=== PATIENT | male | born 1985 | race Two or more races ===

== ENCOUNTER 2016-11-08 17:27 | Emergency (ER) | payer SELFPAY ==
[2016-11-08 17:46] VITALS: BP 118/74
[2016-11-08] MEDS ORDERED: Ketorolac 30 MG/ML SDV IM ONE (18:04)
--- NOTE | 2016-11-08 18:10 | EDM.PDOC ---
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 States this afternoon he was changing body positions in bed and dislocated his right shoulder. He was able to place the shoulder back into place on his own accord with no difficulties. He has not been evaluated by orthopedic surgeon here in the [place]. He has been evaluated by orthopedic surgeon during his adolescents with MRI obtained in [place]. He has not undergone any sort of surgery on his shoulders. He presents to the ED with pain to the right shoulder. Has not taken any [id number] medications. He has full range of motion of his arm with increasing pain noted to the shoulder joint. Denies any sensory changes distally. He offers no additional complaints. Occurred When: this afternoon Occurred Where: home Method of Injury: other (Change in body position in bed.) Pain/Injury Location: Reports: upper extremity, right Allergies/ADRs: Allergies No Known Allergies Allergy (Verified 05/12/16 08:43) Home Medications: Ambulatory Orders . [No Known Home Meds] 11/08/16 [Confirmed 11/08/16] Past Medical History - Past Health History Medical/Surgical History: Denies Medical/Surgical History Gastrointestinal History: Reports: GERD - Past Surgical History Musculoskeletal Surgical History: Reports: Other (see below) Other Musculoskeletal Surgeries/Procedures:: freq shoulder dislocation to the right Social & Family History - Family History Family Medical History: Noncontributory - Tobacco Use Smoking Status *Q: Current Every Day Smoker Years of Tobacco use: 3 Packs/Tins Daily: 1 Second Hand Smoke Exposure: Yes - Caffeine Use Caffeine Use: Reports: Soda - Alcohol Use Days Per Week of Alcohol Use: 0 - Recreational Drug Use Recreational Drug Use: Yes Drug Use in Last 12 Months: Yes Recreational Drug Type: Reports: Marijuana/Hashish - Living Situation & Occupation Living situation: Reports: with family Review of Systems - Review of Systems Review Of Systems: See Below Musculoskeletal: Reports: shoulder pain (Right), joint pain (Right shoulder), muscle pain (Right shoulder). Denies: neck pain, arm pain, joint swelling Skin: Reports: no symptoms Neurological: Denies: numbness, paresthesia, tingling Trauma Exam - Physical Exam Exam: See Below Exam Limited By: No limitations General Appearance: Reports: alert, WD/WN, no apparent distress Head: Reports: atraumatic, normocephalic Eyes: bilateral eye: PERRL Ears: Reports: hearing grossly normal Nose: Reports: normal inspection Throat/Mouth: Reports: Normal voice, No airway compromise Neck: Reports: non-tender, full range of motion, normal alignment, normal inspection Respiratory Exam: Reports: no respiratory distress, lungs clear, normal breath sounds, no accessory muscle use, chest non-tender Cardiovascular: Reports: normal peripheral pulses, regular rate, rhythm Back: Reports: full range of motion, normal inspection, non-tender. Denies: muscle spasm, paraspinal tenderness Extremities: Reports: no evidence of injury, normal range of motion, pain with movement (Right shoulder), tenderness (Noted to the lateral posterior and anterior right shoulder. No findings concerning for shoulder dislocation.) Neurologic: Reports: director nursing service II-XII nml as tested, no motor/sensory deficits, alert , normal mood/affect, oriented x 3 Skin: Reports: Normal color, Warm/dry Course - Vital Signs Last Recorded V/S: Last Vital Signs Temp 98.7 F 11/08/16 17:44 Pulse 73 11/08/16 17:44 Resp 20 11/08/16 17:44 BP 118/74 11/08/16 17:44 Pulse Ox 100 11/08/16 17:44 - Orders/Labs/Meds Orders: Active Orders 24 hr Category Date Time Status DME for Discharge [COMM] Stat Oth 11/08/16 18:04 Ordered Meds: Medications Discontinued Medications Generic Name Dose Route Start Last Admin Trade Name Freq PRN Reason Stop Dose Admin Ketorolac Tromethamine 30 mg 11/08/16 18:04 11/08/16 18:17 Toradol IM 11/08/16 18:05 30 mg ONETIME ONE Administration - Re-Assessments/Exams Free Text/Narrative Re-Assessment/Exam: Physical examination did not elicit any findings concerning for shoulder currently being dislocated. Patient has full range of motion with pain isolated to the right shoulder. Do not see the need at this point to obtain a x -ray of the right shoulder since this was not traumatic in nature. He has a history of recurrent shoulder dislocations. I have ordered Toradol 30 mg IM and also shoulder sling to be placed. Will discharge patient home with instructions as documented. 11/08/16 18:09 Departure - Departure Time of Disposition: 18:10 Disposition: Home, Self-Care 01 Condition: good Clinical Impression: Shoulder joint painful on movement Qualifiers: Laterality: right Qualified Code(s): M25.511 - Pain in right shoulder Recurrent shoulder dislocation Qualifiers: Laterality: right Qualified Code(s): M24.411 - Recurrent dislocation, right shoulder Instructions: Shoulder Dislocation, Laxt-hp-Goia, Shoulder Pain, [id number] Referrals: PCP,None [Primary Care Provider] - Timur Graff MD [Physician] - Janes Marti MD [Physician] - Forms: ED Department Discharge Additional Instructions: Wear arm sling for the next few days taking off while icing. Apply ice to the affected area 6 times daily, 20 minutes in duration, do not place ice directly on the skin. Take ibuprofen and tylenol in alternating fashion for pain. Refrain from lifting arm above your head and externally rotating your arm from the body. These two movements will increase likely ying of dislocating it again. Followup with orthopedic surgeon of your choice for further evaluation and treatment. Return to the E.D. for any new or worsening symptoms. - My Orders Last 24 Hours: My Active Orders 11/08/16 18:04 DME for Discharge [COMM] Stat - Assessment/Plan Last 24 Hours: My Active Orders 11/08/16 18:04 DME for Discharge [COMM] Stat
== END 2016-11-08 18:18 | disposition home or self-care (01) ==
LOC: JD.ED 17:27
DX: M24.411 Recurrent dislocation, right shoulder (principal); F17.210 Nicotine dependence, cigarettes, uncomplicated; K21.9 Gastro-esophageal reflux disease without esophagitis; Z98.890 Other specified postprocedural states
CPT/HCPCS: 96372; 99283; J1885

== ENCOUNTER 2017-05-20 11:39 | Emergency (ER) | payer SELFPAY ==
[2017-05-20 11:50] VITALS: BP 109/72
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
--- NOTE | 2017-05-21 07:57 | CR ---
Chest and right ribs: Frontal view of the chest was obtained as well as two-views of the right ribs. Comparison: Previous chest x-ray of 09/01/15. Heart size and mediastinum are within normal limits. Lungs are clear. No fracture or other rib abnormality is identified. Impression: 1. Nothing acute is identified on frontal chest x-ray. No discrete right sided rib abnormality is appreciated. Diagnostic code #1
== END 2017-05-20 13:05 | disposition home or self-care (01) ==
LOC: JD.ED 11:39
DX: S20.211A Contusion of right front wall of thorax, initial encounter (principal); K21.9 Gastro-esophageal reflux disease without esophagitis; F17.210 Nicotine dependence, cigarettes, uncomplicated; W51.XXXA Accidental striking against or bumped into by another person, initial encounter; Y93.72 Activity, wrestling
CPT/HCPCS: 71101-26-RT; 71101-RT; 99283

== ENCOUNTER 2017-05-27 12:59 | Emergency (ER) | payer SELFPAY ==
[2017-05-27 13:12] VITALS: BP 135/87
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
--- NOTE | 2017-05-27 19:56 | CR ---
Chest and right ribs: Frontal view of the chest was obtained as well as 3 views of the right ribs. Comparison: Previous chest and right rib study of 05/20/17. No discrete right sided rib abnormality is seen. Heart size and mediastinum are normal. Lungs are clear. Impression: 1. No definite right-sided rib abnormality is appreciated. Nothing acute is seen on accompanying chest x-ray. Diagnostic code #1
== END 2017-05-27 15:08 | disposition home or self-care (01) ==
LOC: JD.ED 12:59
DX: S20.211A Contusion of right front wall of thorax, initial encounter (principal); F17.210 Nicotine dependence, cigarettes, uncomplicated; X58.XXXA Exposure to other specified factors, initial encounter; Y93.72 Activity, wrestling
CPT/HCPCS: 71101-26-RT; 71101-RT; 99283

== ENCOUNTER 2017-08-20 17:20 | Emergency (ER) | payer SELFPAY ==
[2017-08-20 17:28] VITALS: BP 117/83
[2017-08-20] MEDS ORDERED: HYDROmorphone 1 MG/ML Syringe IVPUSH ONE ×2 (17:58→18:39)
--- NOTE | 2017-08-20 17:58 | EDM.PDOC ---
ED HPI GENERAL MEDICAL PROBLEM - General Chief Complaint: Upper Extremity Injury/Pain Stated Complaint: RIGHT SHOULDER INJURY Time Seen by Provider: 08/20/17 17:22 Source of Information: Reports: Patient History Limitations: Reports: No Limitations - History of Present Illness INITIAL COMMENTS - FREE TEXT/NARRATIVE: The patient states that he slipped on ice and fell onto his right shoulder around 16:30. He presents with an apparent dislocated right shoulder. He is otherwise uninjured. He states that he has suffered numerous (perhaps 20) bilateral shoulder dislocations for most of his life. No prior surgeries, citing cost and lack of insurance. He states that he has been told that there is bony damage to his shoulder (Hill-Sachs deformity?) The patient does not have a PCP. Right Arm Pain Score (Numeric/FACES): 10 - Related Data Allergies Allergy/AdvReac Type Severity Reaction Status Date / Time No Known Allergies Allergy Verified 08/20/17 17:23 Home Meds: Home Meds . [No Known Home Meds] 08/20/17 [History] Past Medical History Gastrointestinal History: Reports: GERD (untreated) Musculoskeletal History: Reports: Other (See Below) (recurrent bilateral shoulder dislocations) Social & Family History - Family History Family Medical History: Noncontributory - Tobacco Use Smoking Status *Q: Current Every Day Smoker Years of Tobacco use: 15 Packs/Tins Daily: 1 - Caffeine Use Caffeine Use: Reports: Soda - Alcohol Use Alcohol Use History: Yes Alcohol Use Frequency: Socially - Recreational Drug Use Recreational Drug Use: Yes Drug Use in Last 12 Months: Yes Recreational Drug Type: Reports: Cocaine (las around 2004), Marijuana/Hashish ( daily) - Living Situation & Occupation Living situation: Reports: Single, with Significant Other (Girlfriend), with Family (1 child) 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) Review of Systems - Review of Systems Review Of Systems: See Below Constitutional: Reports: No Symptoms Eyes: Reports: No Symptoms Ears: Reports: No Symptoms Nose: Reports: No Symptoms Mouth/Throat: Reports: No Symptoms Respiratory: Reports: No Symptoms Cardiovascular: Reports: No Symptoms GI/Abdominal: Reports: No Symptoms Genitourinary: Reports: No Symptoms Musculoskeletal: Reports: No Symptoms Skin: Reports: No Symptoms Neurological: Reports: No Symptoms Psychiatric: Reports: No Symptoms ED EXAM, GENERAL - Physical Exam Exam: See Below Exam Limited By: No Limitations General Appearance: Alert, WD/WN, Mild Distress Extremities: Other (Exam consistent with anterior dislocation of the right shoulder. Neurovascular status of the right upper cavity is intact.) ED TRAUMA EXTREMITY PROCEDURES - Joint Reduction Site: Shoulder (R) Sedation: Conscious Sedation (Dilaudid 2 mg total + Versed 2 mg total) Pre-Procedure NV Status: Normal Post-Procedure NV Status: Normal Technique: Traction/Counter Traction Number of Attempts: 1 Post-Reduction Imaging: Completely Reduced, No Fracture Seen Joint Reduction Complications: No Course - Vital Signs Last Recorded V/S: Last Vital Signs Temp 36.3 C 08/20/17 17:24 Pulse 80 08/20/17 17:24 Resp 18 08/20/17 17:24 BP 117/83 08/20/17 17:24 Pulse Ox 100 08/20/17 17:24 - Orders/Labs/Meds Orders: Active Orders 24 hr Category Date Time Status Shoulder Comp Rt [CR] Stat Exams 08/20/17 17:42 Taken Shoulder Comp Rt [CR] Stat Exams 08/20/17 18:43 Ordered DME for Discharge [COMM] Stat Oth 08/20/17 18:49 Ordered Meds: Medications Discontinued Medications Generic Name Dose Route Start Last Admin Trade Name Freq PRN Reason Stop Dose Admin Hydromorphone HCl 1 mg 08/20/17 17:58 08/20/17 18:12 Dilaudid IVPUSH 08/20/17 17:59 1 mg ONETIME ONE Administration Hydromorphone HCl Confirm 08/20/17 18:28 08/20/17 18:41 Dilaudid Administered 08/20/17 18:29 Not Given Dose 1 mg .ROUTE .STK-MED ONE Hydromorphone HCl 1 mg 08/20/17 18:39 08/20/17 18:39 Dilaudid IVPUSH 08/20/17 18:40 1 mg ONETIME ONE Administration Midazolam HCl 1 mg 08/20/17 18:18 08/20/17 18:35 Versed 1 Mg/Ml IVPUSH 08/20/17 18:19 1 mg ONETIME ONE Administration Midazolam HCl 1 mg 08/20/17 18:42 08/20/17 18:43 Versed 1 Mg/Ml IVPUSH 08/20/17 18:43 1 mg ONETIME ONE Administration - Re-Assessments/Exams Free Text/Narrative Re-Assessment/Exam: 08/20/17 18:17 2-view radiographs of the right shoulder appear to demonstrate an anterior dislocation. No fracture identified. Formal read per the Radiologist pending. 08/20/17 18:52 2-view post-procedure radiographs of the right shoulder appear to demonstrate successful reduction of the right shoulder with no fracture identified. Formal read per the radiologist pending. The patient will be fitted with an arm sling and discharged home. I will refer him to Dr. Graff for follow-up. Departure - Departure Time of Disposition: 18:54 Disposition: Home, Self-Care 01 Condition: Good Clinical Impression: Recurrent dislocation, right shoulder - Discharge Information Referrals: Timur Graff MD [Physician] - Forms: ED Department Discharge Additional Instructions: You were seen in the emergency room after slipping, falling, and dislocating her right shoulder. Your shoulder was put back in place in the ER. You have been fitted with an arm sling. Wear this during the day so that your forearm crosses her abdomen. Take [id number] Tylenol or ibuprofen as needed for discomfort. Follow-up with the orthopedic surgeon Dr. Graff for treatment options for your recurrent dislocated shoulder. If any other problems, please do not hesitate to return to the ER. - My Orders Last 24 Hours: My Active Orders 08/20/17 17:42 Shoulder Comp Rt [CR] Stat 08/20/17 18:43 Shoulder Comp Rt [CR] Stat 08/20/17 18:49 DME for Discharge [COMM] Stat - Assessment/Plan Last 24 Hours: My Active Orders 08/20/17 17:42 Shoulder Comp Rt [CR] Stat 08/20/17 18:43 Shoulder Comp Rt [CR] Stat 08/20/17 18:49 DME for Discharge [COMM] Stat
[2017-08-20] MEDS ORDERED: Midazolam 1 MG/ML 2 ML SDV IVPUSH ONE ×2 (18:18→18:42)
[2017-08-20] MEDS ORDERED: HYDROmorphone 1 MG/ML Syringe ONE (18:28)
--- NOTE | 2017-08-22 08:26 | CR ---
Right shoulder: Two views of the right shoulder were obtained. Comparison: No prior shoulder study. Anterior subcoracoid dislocation is seen. No fracture or other bony abnormality is identified. Impression: 1. Dislocated right shoulder. Diagnostic code #3 MTDD
--- NOTE | 2017-08-22 08:27 | CR ---
Right shoulder: Three views of the right shoulder were obtained. Comparison: Prior shoulder study performed on the same day (5:50 PM). Previous dislocation has been reduced. Glenohumeral alignment appears normal. Acromioclavicular joint appears normal. No fracture or other abnormality is appreciated. Impression: 1. Previous dislocation reduced. Right shoulder study appears unremarkable. Diagnostic code # 1 MTDD
== END 2017-08-20 19:10 | disposition home or self-care (01) ==
LOC: JD.ED 17:20
DX: M24.411 Recurrent dislocation, right shoulder (principal); F17.210 Nicotine dependence, cigarettes, uncomplicated; W00.9XXA Unspecified fall due to ice and snow, initial encounter
CPT/HCPCS: 23650; 73030; 96374; 96375; 99284; J1170; J2250; 23655

== ENCOUNTER 2018-05-01 14:48 | Emergency (ER) | payer SELFPAY ==
[2018-05-01 15:11] VITALS: BP 119/78
--- NOTE | 2018-05-01 16:48 | EDM.PDOC ---
ED HPI GENERAL MEDICAL PROBLEM - General Chief Complaint: General Stated Complaint: RIB PAIN Time Seen by Provider: 05/01/18 16:42 Source of Information: Reports: Patient History Limitations: Reports: No Limitations - History of Present Illness INITIAL COMMENTS - FREE TEXT/NARRATIVE: 32-year-old male presents for evaluation and treatment of left-sided rib and left sided back pain. Reports has been present for about a week. States he was working, lifting heavy objects. Reports he developed pain the next day. Has tried ibuprofen but he continues to have pain. Has never had anything like this before. No trauma such as motor vehicle accidents. Denies any cough. Reports pain with taking a deep breath. Left Chest Pain Score (Numeric/FACES): 9 - Related Data Allergies Allergy/AdvReac Type Severity Reaction Status Date / Time No Known Allergies Allergy Verified 05/01/18 15:10 Home Meds: Home Meds Orphenadrine [Norflex] 100 mg PO BID #20 tab.er 05/01/18 [Rx] Past Medical History - Past Health History Medical/Surgical History: Denies Medical/Surgical History Gastrointestinal History: Reports: GERD Musculoskeletal History: Reports: Other (See Below) (recurrent bilateral shoulder dislocations) - Past Surgical History Musculoskeletal Surgical History: Reports: Other (See Below) Other Musculoskeletal Surgeries/Procedures:: muscle pain to the right chest Social & Family History - Family History Family Medical History: Noncontributory - Tobacco Use Smoking Status *Q: Current Every Day Smoker Years of Tobacco use: 6 Packs/Tins Daily: 0.7 - Caffeine Use Caffeine Use: Reports: Coffee - Recreational Drug Use Recreational Drug Use: No - Living Situation & Occupation Living situation: Reports: Single, with Significant Other (Girlfriend), with Family (1 child) 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) ED ROS GENERAL - Review of Systems Review Of Systems: See Below Cardiovascular: Reports: Chest Pain (left posterior lateral chest) Musculoskeletal: Reports: Back Pain (left mid to upper back) ED EXAM, GENERAL - Physical Exam Exam: See Below Exam Limited By: No Limitations General Appearance: Alert, WD/WN, No Apparent Distress Throat/Mouth: Normal Inspection, Normal Lips, Normal Voice, No Airway Compromise Respiratory/Chest: No Respiratory Distress, Lungs Clear, Normal Breath Sounds, Chest Non-Tender Cardiovascular: Normal Peripheral Pulses, Regular Rate, Rhythm, No Murmur Neurological: Alert, Oriented, Normal Cognition Psychiatric: Normal Affect, Normal Mood Course - Vital Signs Last Recorded V/S: Last Vital Signs Temp 98.8 F 05/01/18 15:08 Pulse 81 05/01/18 15:08 Resp 16 05/01/18 15:08 BP 119/78 05/01/18 15:08 Pulse Ox 98 05/01/18 15:08 - Radiology Interpretation Free Text/Narrative:: xray shows no acute intrathoracic process. No rib fracture appreciated. - Re-Assessments/Exams Free Text/Narrative Re-Assessment/Exam: 05/01/18 17:12 Reviewed the x-rays with the patient. Will discharge home. Likely muscular in origin. Will try some muscle relaxers. Follow-up if not much better. Discharge instructions as documented. Departure - Departure Time of Disposition: 17:18 Disposition: Home, Self-Care 01 Condition: Good Clinical Impression: Muscle strain - Discharge Information *PRESCRIPTION DRUG MONITORING PROGRAM REVIEWED*: No *COPY OF PRESCRIPTION DRUG MONITORING REPORT IN PATIENT AAYUSH: No Prescriptions: Orphenadrine [Norflex] 100 mg PO BID #20 tab.er Instructions: Muscle Strain, [id number] Referrals: PCP,Lashell [Primary Care Provider] - Mallorie Bruno, [employer]PER [Nurse Practitioner] - Forms: ED Department Discharge Additional Instructions: Continue taking OTC NSAIDs such as aleve or ibuprofen. May take tylenol as needed for additional relief. Norflex 1 tab PO bid prn muscle spasms. Norflex may make you drowsy, do not drive or operate machinery until you know how this will affect you. Recommend heat to the sore area for additional pain relief. Expect to be sore for the next week, if your symptoms persist, follow-up with family med in the clinic. Recommend Ashish Albert or Mallorie Bruno. Call [phone] to schedule with one of these providers. Please return to the ER should your symptoms change or worsen.
--- NOTE | 2018-05-07 14:07 | CR ---
Chest and left ribs: Frontal view of the chest was obtained as well as three views of the left ribs. Comparison: Prior chest x-ray of 05/27/17. Heart size and mediastinum are normal. Lungs are clear. No fracture or other bony abnormality is seen within the left ribs. Impression: 1. No abnormality is identified on frontal chest x-ray. No discrete abnormality on left rib exam. Diagnostic code #1
== END 2018-05-01 17:25 | disposition home or self-care (01) ==
LOC: JD.ED 14:48
DX: S29.011A Strain of muscle and tendon of front wall of thorax, initial encounter (principal); F17.210 Nicotine dependence, cigarettes, uncomplicated; X50.0XXA Overexertion from strenuous movement or load, initial encounter; Y99.0 Civilian activity done for income or pay
CPT/HCPCS: 71101-26-LT; 71101-LT; 99283

== ENCOUNTER 2018-09-10 19:09 | Emergency (ER) | payer SELFPAY ==
[2018-09-10 19:29] VITALS: BP 106/81
--- NOTE | 2018-09-10 19:51 | EDM.PDOC ---
ED HPI GENERAL MEDICAL PROBLEM - General Chief Complaint: Cardiovascular Problem Stated Complaint: RAPID HEART BEAT Time Seen by Provider: 09/10/18 19:51 - History of Present Illness INITIAL COMMENTS - FREE TEXT/NARRATIVE: 33-year-old male presents emergency room with mid upper abdominal discomfort. The patient took a energy supplement stimulant drink this morning and is had a lot of heartburn since he is also a little anxious. The patient has been smoking a lot of marijuana try and make this better. He denies fevers or chills no other abdominal pain no nausea vomiting constipation or diarrhea. Patient has not had problems like this in the past - Related Data Allergies Allergy/AdvReac Type Severity Reaction Status Date / Time No Known Allergies Allergy Verified 09/10/18 19:30 Home Meds: Home Meds Pantoprazole Sodium [Protonix] 40 mg PO Q24H #30 tablet. 09/10/18 [Rx] Sucralfate [Carafate] 1 gm PO Q6H #20 tablet 09/10/18 [Rx] Past Medical History - Past Health History Medical/Surgical History: Denies Medical/Surgical History Gastrointestinal History: Reports: GERD Musculoskeletal History: Reports: Other (See Below) - Past Surgical History Musculoskeletal Surgical History: Reports: Other (See Below) Other Musculoskeletal Surgeries/Procedures:: muscle pain to the right chest Social & Family History - Family History Family Medical History: Noncontributory - Tobacco Use Smoking Status *Q: Current Every Day Smoker Years of Tobacco use: 3 Packs/Tins Daily: 0.5 - Caffeine Use Caffeine Use: Reports: Coffee, Soda, Tea - Recreational Drug Use Recreational Drug Type: Reports: Marijuana/Hashish - Living Situation & Occupation Living situation: Reports: Single, with Significant Other (Girlfriend), with Family (1 child) 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 Denies: No Symptoms, Chest Pain Endocrine: Reports: No Symptoms GI/Abdominal: Reports: Abdominal Pain. Denies: Constipation, Diarrhea, Nausea, Vomiting : Reports: No Symptoms Musculoskeletal: Reports: No Symptoms Skin: Reports: No Symptoms Neurological: Reports: No Symptoms Psychiatric: Reports: No Symptoms ED EXAM, GENERAL - Physical Exam Exam: See Below General Appearance: Alert, Mild Distress, Other (He is somewhat anxious and mildly tachycardic) Head: Atraumatic, Normocephalic Neck: Normal Inspection, Supple, Non-Tender, Full Range of Motion Respiratory/Chest: No Respiratory Distress, Lungs Clear, Normal Breath Sounds Cardiovascular: No Edema, No Murmur, Tachycardia (Greater than 1:15 120) GI/Abdominal: Normal Bowel Sounds, Soft, Other (Midepigastric discomfort no other discomfort identified with palpation no rigidity rebound or guarding noted ) Extremities: Normal Inspection, No Pedal Edema Neurological: Alert, Oriented, Normal Cognition Psychiatric: Anxious EKG INTERPRETATION EKG Date: 09/10/18 Rhythm: NSR Rate (Beats/Min): 117 Harrell: Normal P-Wave: Present QRS: Normal ST-T: Normal QT: Normal Comparison: NA - No Prior EKG Course - Vital Signs Last Recorded V/S: Last Vital Signs Temp 38.0 C 09/10/18 19:26 Pulse 121 H 09/10/18 19:26 Resp 18 09/10/18 19:26 BP 106/81 09/10/18 19:26 Pulse Ox 100 09/10/18 19:26 - Orders/Labs/Meds Orders: Active Orders 24 hr Category Date Time Status EKG Documentation Completion [RC] ASDIRECTED Care 09/10/18 19:35 Active Pantoprazole [ProTONIX] Med 09/11/18 22:07 Once 40 mg PO ONETIME ONE EKG 12 Lead [EK] Stat Ther 09/10/18 19:34 Ordered Medication Orders Pantoprazole Sodium (Protonix) 40 mg PO ONETIME ONE Stop: 09/11/18 22:08 Meds: Medications Generic Name Dose Route Start Last Admin Trade Name Freq PRN Reason Stop Dose Admin Pantoprazole Sodium 40 mg 09/11/18 22:07 Protonix PO 09/11/18 22:08 ONETIME ONE Discontinued Medications Generic Name Dose Route Start Last Admin Trade Name Freq PRN Reason Stop Dose Admin Al Hydroxide/Mg Hydroxide 30 0 ml 09/10/18 21:01 09/10/18 21:17 ml/ Lidocaine HCl 15 ml PO 09/10/18 21:02 45 ml ONETIME ONE Administration Lorazepam 1 mg 09/10/18 21:01 09/10/18 21:18 Ativan IM 09/10/18 21:02 1 mg ONETIME ONE Administration Sucralfate 1 gm 09/10/18 22:19 Carafate PO 09/10/18 22:20 ONETIME ONE - Re-Assessments/Exams Free Text/Narrative Re-Assessment/Exam: 09/10/18 22:14 The patient is doing much better after some Ativan and a GI cocktail he would like to go home Departure - Departure Time of Disposition: 22:15 Disposition: Home, Self-Care 01 Clinical Impression: Anxiety reaction, Dyspepsia Prescriptions: Pantoprazole Sodium [Protonix] 40 mg PO Q24H #30 tablet. Sucralfate [Carafate] 1 gm PO Q6H #20 tablet Referrals: PCP,None [Primary Care Provider] - Forms: ED Department Discharge Additional Instructions: Return to the emergency room with any questions problems worsening symptoms. Follow-up in the Hospital clinic next week. [phone]. Use the medications as directed. Avoid energy stimulant drinks. Avoid marijuana - My Orders Last 24 Hours: My Active Orders 09/10/18 19:34 EKG 12 Lead [EK] Stat 09/10/18 19:35 EKG Documentation Completion [RC] ASDIRECTED 09/11/18 22:07 Pantoprazole [ProTONIX] 40 mg PO ONETIME ONE - Assessment/Plan Last 24 Hours: My Active Orders 09/10/18 19:34 EKG 12 Lead [EK] Stat 09/10/18 19:35 EKG Documentation Completion [RC] ASDIRECTED 09/11/18 22:07 Pantoprazole [ProTONIX] 40 mg PO ONETIME ONE
[2018-09-10] MEDS ORDERED: LORazepam 2 MG/ML SDV IM ONE (21:01)
[2018-09-10] MEDS ORDERED: Alum Hydrox/Mag Hydrox/Simeth 30 ML, Lidocaine 2% 15 ML PO ONE ×2 (21:01)
[2018-09-10] MEDS ORDERED: Sucralfate Suspension 1 GM/10 ML Cup PO ONE (22:19)
[2018-09-10] MEDS ORDERED: Pantoprazole 40 MG Tab.CR PO ONE (22:31)
[2018-09-11] MEDS ORDERED: Pantoprazole 40 MG Tab.CR PO ONE (22:07)
== END 2018-09-10 22:54 | disposition home or self-care (01) ==
LOC: JD.ED 19:09
DX: R10.13 Epigastric pain (principal); F41.9 Anxiety disorder, unspecified; F17.210 Nicotine dependence, cigarettes, uncomplicated
CPT/HCPCS: 93005; 96372; 99285; A9270; J2060; 93010; 99283

== ENCOUNTER 2019-01-28 09:07 | Emergency (ER) | payer OTHER ==
[2019-01-28] MEDS ORDERED: Sodium Chloride 0.9% 10 ML Syringe FLUSH PRN (09:16)
[2019-01-28] MEDS ORDERED: HYDROmorphone 0.5 MG/0.5 ML Syringe IVPUSH ONE (09:17)
[2019-01-28] MEDS ORDERED: Metoclopramide 10 MG/2 ML SDV IVPUSH ONE (09:22)
[2019-01-28 09:30] VITALS: BP 129/59
--- NOTE | 2019-01-28 09:46 | EDM.PDOC ---
<Francesca Chaudhary - Last Filed: 01/28/19 10:06> ED HPI GENERAL MEDICAL PROBLEM - General Chief Complaint: Upper Extremity Injury/Pain Stated Complaint: R SHOULDER INJURY Time Seen by Provider: 01/28/19 09:15 Source of Information: Reports: Patient History Limitations: Reports: No Limitations - History of Present Illness INITIAL COMMENTS - FREE TEXT/NARRATIVE: 33 y/o male presented to ER with cc right shoulder pain. He reports he lifted something heavy and his right shoulder went out. He reports he has dislocated it twice in the past. He denies any neck or back pain. Onset: Today, Sudden Onset Date: 01/28/19 Onset Time: 08:30 Duration: Getting Worse Location: Reports: Upper Extremity, Right Quality: Reports: Throbbing Severity: Moderate Improves with: Reports: None Worsens with: Reports: Movement Context: Reports: Trauma - Related Data Allergies Allergy/AdvReac Type Severity Reaction Status Date / Time No Known Allergies Allergy Verified 01/28/19 09:17 Home Meds: Home Meds . [No Known Home Meds] 01/28/19 [History] Past Medical History - Past Health History Medical/Surgical History: Denies Medical/Surgical History Gastrointestinal History: Reports: GERD Musculoskeletal History: Reports: Other (See Below) - Past Surgical History Musculoskeletal Surgical History: Reports: Other (See Below) Other Musculoskeletal Surgeries/Procedures:: dislocation of right shoulder x2 Social & Family History - Family History Family Medical History: Noncontributory - Tobacco Use Smoking Status *Q: Current Every Day Smoker Years of Tobacco use: 4 Packs/Tins Daily: 1 - Caffeine Use Caffeine Use: Reports: Coffee, Soda, Tea - Recreational Drug Use Recreational Drug Use: No - Living Situation & Occupation Living situation: Reports: Single, with Significant Other (Girlfriend), with Family (1 child) 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 Denies: Dizziness, Headache Psychiatric: Reports: No Symptoms ED EXAM, GENERAL - Physical Exam Exam: See Below Exam Limited By: No Limitations General Appearance: Alert, WD/WN, No Apparent Distress Neck: Normal Inspection, Supple, Non-Tender, Full Range of Motion Respiratory/Chest: No Respiratory Distress, Lungs Clear, Normal Breath Sounds, No Accessory Muscle Use, Chest Non-Tender Cardiovascular: Normal Peripheral Pulses, Regular Rate, Rhythm, No Edema, No Gallop, No JVD, No Murmur, No Rub Back Exam: Normal Inspection, Full Range of Motion Extremities: Normal Range of Motion, No Pedal Edema, Arm Pain, Limited Range of Motion, Other (right shoulder dislocation, neurovascularly intact) Neurological: Alert, Oriented, CN II-XII Intact Psychiatric: Normal Affect, Normal Mood Lymphatic: No Adenopathy Course - Vital Signs Last Recorded V/S: Last Vital Signs Temp 36.3 C 01/28/19 09:13 Pulse 80 01/28/19 09:13 Resp 16 01/28/19 09:13 BP 129/59 L 01/28/19 09:30 Pulse Ox 100 01/28/19 09:13 - Orders/Labs/Meds Orders: Active Orders 24 hr Category Date Time Status Shoulder 1V Rt [CR] Stat Exams 01/28/19 09:15 Taken Shoulder 1V Rt [CR] Stat Exams 01/28/19 09:46 Taken Sodium Chloride 0.9% [Saline Flush] Med 01/28/19 09:16 Active 10 ml FLUSH ASDIRECTED PRN Saline Lock Insert [OM.PC] Routine Oth 01/28/19 09:16 Ordered Medication Orders Sodium Chloride (Saline Flush) 10 ml FLUSH ASDIRECTED PRN PRN Reason: Keep Vein Open Last Admin: 01/28/19 09:30 Dose: 10 ml Meds: Medications Generic Name Dose Route Start Last Admin Trade Name Freq PRN Reason Stop Dose Admin Sodium Chloride 10 ml 01/28/19 09:16 01/28/19 09:30 Saline Flush FLUSH 10 ml ASDIRECTED PRN Administration Keep Vein Open Discontinued Medications Generic Name Dose Route Start Last Admin Trade Name Freq PRN Reason Stop Dose Admin Hydromorphone HCl 1 mg 01/28/19 09:17 01/28/19 09:35 Dilaudid IVPUSH 01/28/19 09:18 Not Given ONETIME ONE Metoclopramide HCl 7.5 mg 01/28/19 09:22 01/28/19 09:32 Reglan IVPUSH 01/28/19 09:23 7.5 mg ONETIME ONE Administration - Re-Assessments/Exams Free Text/Narrative Re-Assessment/Exam: 01/28/19 0920 x-ray reveals right shoulder dislocation 01/28/19 10:07 Post reduction x-ray reveals good alignment, neurovascularly intact. I will discharge home sling/swath. I instructed him to take Ibuprofen and Tylenol as needed for pain. Instructed to follow up with orthopedic, referral given for Dr. Graff. Instructed to return to ER for any new or acute worsening symptoms. He verbalized understanding and is comfortable with plan for discharge. Departure - Departure Time of Disposition: 10:09 Disposition: Home, Self-Care 01 Clinical Impression: Dislocation of right scapula Qualifiers: Encounter type: initial encounter Qualified Code(s): S43.314A - Dislocation of right scapula, initial encounter - Discharge Information Instructions: How to Use a Sling, [id number], Shoulder Dislocation, Easy-to- Read Referrals: Timur Graff MD [Physician] - PCP,None [Primary Care Provider] - Forms: ED Department Discharge Additional Instructions: You have been diagnosis with right shoulder dislocation. I recommend you follow up with a orthopedic surgeon for evaluation and treatment including shoulder repair to prevent further dislocations and injuries. You may take Tylenol or Ibuprofen for pain. <Chace Davis - Last Filed: 01/28/19 10:23> ED TRAUMA EXTREMITY PROCEDURES - Joint Reduction Site: Shoulder (R) Sedation: Other (Patient requested no anesthesia be given.) Technique: Traction/Counter Traction Number of Attempts: 1 Post-Reduction Imaging: Completely Reduced, No Fracture Seen Joint Reduction Complications: No Progress/Comments: Postreduction films reveal normal anatomical position of the humeral head with no sign of Hill-Sachs deformity. The had previous distal clavicle surgery in the past. Patient tolerated the procedure very well without any need for anesthesia.
--- NOTE | 2019-01-28 12:27 | CR ---
Right shoulder: Single AP view of the right shoulder was obtained. Comparison: Prior right shoulder studies of 08/20/17. Anterior dislocated right shoulder is seen. No discrete fracture or other abnormality is seen. Impression: 1. Dislocated right shoulder. Diagnostic code #3
--- NOTE | 2019-01-28 12:39 | CR ---
Right shoulder: Single AP view of the right shoulder was obtained. Comparison: Prior right shoulder study performed earlier on the same day (9:22 AM). Previously noted dislocation has been reduced. Glenohumeral alignment appears normal. Distal clavicle is slightly elevated in relation to the acromion process possibly due to minimal acromioclavicular separation. Impression: 1. Previous dislocation has been reduced. 2. Minimal acromioclavicular separation. Diagnostic code #3
== END 2019-01-28 10:15 | disposition home or self-care (01) ==
LOC: JD.ED 09:07
DX: S43.314A Dislocation of right scapula, initial encounter (principal); F17.210 Nicotine dependence, cigarettes, uncomplicated; K21.9 Gastro-esophageal reflux disease without esophagitis; X50.0XXA Overexertion from strenuous movement or load, initial encounter
CPT/HCPCS: 23650; 73020; 96374; 99283; J2765; 23655; 99284

== ENCOUNTER 2020-01-22 11:59 | Emergency (ER) | payer SELFPAY ==
[2020-01-22 12:09] VITALS: BP 125/80; PULSE 107
[2020-01-22] MEDS ORDERED: Ibuprofen 600 MG Tab PO ONE (12:25)
--- NOTE | 2020-01-22 12:29 | EDM.PDOC ---
ED HPI GENERAL MEDICAL PROBLEM - General Chief Complaint: Skin Complaint Stated Complaint: RASH (UNDER LEFT ARM) Time Seen by Provider: 01/22/20 12:11 Source of Information: Reports: Patient History Limitations: Reports: No Limitations - History of Present Illness INITIAL COMMENTS - FREE TEXT/NARRATIVE: Patient is a 34-year-old male who presents to the emergency department with complaints of a rash on the left side of his chest wrapping around to his back. The rash is painful. He describes it as a burning pain. He first noticed the rash 3 days ago. He has had chickenpox as a child. He has not been taking anything for pain. He denies fever or chills. Denies any chronic underlying health conditions. Left Chest Pain Score (Numeric/FACES): 10 - Related Data Allergies Allergy/AdvReac Type Severity Reaction Status Date / Time No Known Allergies Allergy Verified 01/22/20 12:09 Home Meds: Home Meds Acyclovir [Zovirax] 800 mg PO 5XDAY 7 Days #34 tab 01/22/20 [Rx] Past Medical History - Past Health History Medical/Surgical History: Denies Medical/Surgical History Gastrointestinal History: Reports: GERD Musculoskeletal History: Reports: Other (See Below) - Past Surgical History Musculoskeletal Surgical History: Reports: Other (See Below) Other Musculoskeletal Surgeries/Procedures:: dislocation of right shoulder x2 Social & Family History - Family History Family Medical History: Noncontributory - Tobacco Use Smoking Status *Q: Current Every Day Smoker Years of Tobacco use: 6 Packs/Tins Daily: 1 - Caffeine Use Caffeine Use: Reports: Coffee, Soda, Tea - Recreational Drug Use Recreational Drug Use: Yes Drug Use in Last 12 Months: Yes Recreational Drug Type: Reports: Marijuana/Hashish Recreational Drug Use Frequency: Daily - Living Situation & Occupation Living situation: Reports: Single, with Significant Other (Girlfriend), with Family (1 child) 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 ED EXAM, SKIN/RASH Exam: See Below Exam Limited By: No Limitations General Appearance: Alert, WD/WN, No Apparent Distress Respiratory/Chest: No Respiratory Distress, Lungs Clear, Normal Breath Sounds, No Accessory Muscle Use, Chest Non-Tender Cardiovascular: Normal Peripheral Pulses, Regular Rate, Rhythm, No Edema, No Gallop, No JVD, No Murmur, No Rub Neurological: Alert, Oriented, CN II-XII Intact, Normal Cognition, Normal Gait, Normal Reflexes, No Motor/Sensory Deficits Psychiatric: Normal Affect, Normal Mood Skin: Warm, Dry, Zoster-Like Rash (To the left anterior chest wrapping around to the left upper back at the level of the T5 dermatome) Course - Vital Signs Last Recorded V/S: Last Vital Signs Temp 97.9 F 01/22/20 12:05 Pulse 107 H 01/22/20 12:05 Resp 18 01/22/20 12:05 BP 125/80 01/22/20 12:05 Pulse Ox 96 01/22/20 12:05 Departure - Departure Time of Disposition: 12:25 Disposition: Home, Self-Care 01 Condition: Good Clinical Impression: Shingles rash Qualifiers: Herpes zoster complications: without complications Qualified Code(s): B02.9 - Zoster without complications - Discharge Information *PRESCRIPTION DRUG MONITORING PROGRAM REVIEWED*: No *COPY OF PRESCRIPTION DRUG MONITORING REPORT IN PATIENT AAYUSH: No Prescriptions: Acyclovir [Zovirax] 800 mg PO 5XDAY 7 Days #34 tab Instructions: Shingles Referrals: PCP,None [Primary Care Provider] - Additional Instructions: You were seen in the emergency department today for rash to your left chest wrapping around to her back. On exam, your rash is consistent with a diagnosis of shingles. You have been started on acyclovir which is an antiviral. Take this medication as prescribed. You may use [id number] Tylenol or ibuprofen as needed for pain. Return to the ER as needed. Sepsis Event Note - Evaluation Sepsis Screening Result: No Definite Risk - Focused Exam Vital Signs: Vital Signs Temp Pulse Resp BP Pulse Ox 01/22/20 12:05 97.9 F 107 H 18 125/80 96 Date Exam was Performed: 01/22/20 Time Exam was Performed: 12:24
== END 2020-01-22 12:50 | disposition home or self-care (01) ==
LOC: JD.ED 11:59
DX: B02.9 Zoster without complications (principal); F17.210 Nicotine dependence, cigarettes, uncomplicated
CPT/HCPCS: 99282; A9270

== ENCOUNTER 2020-01-24 16:43 | Emergency (ER) | payer SELFPAY ==
[2020-01-24 16:54] VITALS: BP 113/99; PULSE 87
[2020-01-24] MEDS ORDERED: HYDROmorphone 0.5 MG/0.5 ML Syringe IVPUSH ONE (16:58)
[2020-01-24] MEDS ORDERED: Sodium Chloride 0.9% 10 ML Syringe FLUSH PRN (16:59)
--- NOTE | 2020-01-24 17:11 | EDM.PDOC ---
ED HPI GENERAL MEDICAL PROBLEM - General Chief Complaint: Upper Extremity Injury/Pain Stated Complaint: R ARM INJURY Time Seen by Provider: 01/24/20 16:49 Source of Information: Reports: Patient History Limitations: Reports: No Limitations - History of Present Illness INITIAL COMMENTS - FREE TEXT/NARRATIVE: Patient is a 34-year-old male who presents to the emergency department with complaints of right arm pain. He states he was swinging his arm when he experienced the pain and likely dislocated his right shoulder. He does have a history of previous dislocations of this extremity. Last dislocation of this extremity was in March 2019. He was seen in this emergency department for this injury as well. Prior to this incident, he had dislocated on a number of occasions also. He denies numbness and tingling to the extremity. Pulses are intact distal to the injury. Right Shoulder Pain Score (Numeric/FACES): 10 - Related Data Allergies Allergy/AdvReac Type Severity Reaction Status Date / Time No Known Allergies Allergy Verified 01/24/20 16:54 Home Meds: Home Meds Acyclovir [Zovirax] 800 mg PO 5XDAY 7 Days #34 tab 01/22/20 [Rx] Past Medical History - Past Health History Medical/Surgical History: Denies Medical/Surgical History Gastrointestinal History: Reports: GERD Musculoskeletal History: Reports: Other (See Below) - Past Surgical History Musculoskeletal Surgical History: Reports: Other (See Below) Other Musculoskeletal Surgeries/Procedures:: dislocation of right shoulder x2 Social & Family History - Family History Family Medical History: Noncontributory - Tobacco Use Smoking Status *Q: Current Every Day Smoker Years of Tobacco use: 7 Packs/Tins Daily: 1 - Caffeine Use Caffeine Use: Reports: None - Recreational Drug Use Recreational Drug Use: Yes Drug Use in Last 12 Months: Yes Recreational Drug Type: Reports: Marijuana/Hashish Recreational Drug Use Frequency: Daily - Living Situation & Occupation Living situation: Reports: Single, with Significant Other (Girlfriend), with Family (1 child) 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 ED EXAM, GENERAL - Physical Exam Exam: See Below Exam Limited By: No Limitations General Appearance: Alert, WD/WN, Mild Distress Respiratory/Chest: No Respiratory Distress, Lungs Clear, Normal Breath Sounds, No Accessory Muscle Use, Chest Non-Tender Cardiovascular: Normal Peripheral Pulses, Regular Rate, Rhythm, No Edema, No Gallop, No JVD, No Murmur, No Rub Extremities: Other (Obvious deformity/location to right shoulder. Pulses intact. ) Neurological: Alert, Oriented, CN II-XII Intact, Normal Cognition, Normal Gait, Normal Reflexes, No Motor/Sensory Deficits Psychiatric: Normal Affect, Normal Mood Skin Exam: Warm, Dry, Intact, Normal Color, No Rash ED TRAUMA EXTREMITY PROCEDURES - Joint Reduction Right Shoulder Sedation: Conscious Sedation Pre-Procedure NV Status: Normal Post-Procedure NV Status: Normal Technique: Traction/Counter Traction Number of Attempts: 1 Post-Reduction Imaging: Completely Reduced Joint Reduction Complications: No Course - Vital Signs Last Recorded V/S: Last Vital Signs Temp 97.4 F 01/24/20 16:50 Pulse 87 01/24/20 16:50 Resp 18 01/24/20 16:50 BP 113/99 H 01/24/20 16:50 Pulse Ox 97 01/24/20 16:50 - Orders/Labs/Meds Orders: Active Orders 24 hr Category Date Time Status Peripheral IV Care [RC] . DIRECTED Care 01/24/20 16:59 Active Shoulder 1V Rt [CR] Stat Exams 01/24/20 17:40 Taken Shoulder Comp Rt [CR] Stat Exams 01/24/20 16:58 Taken Peripheral IV Insertion Adult [OM.PC] Stat Oth 01/24/20 16:59 Ordered Meds: Medications Discontinued Medications Generic Name Dose Route Start Last Admin Trade Name Odalys PRN Reason Stop Dose Admin Fentanyl Confirm 01/24/20 17:24 Sublimaze Administered 01/24/20 17:25 Dose 100 mcg .ROUTE .STK-MED ONE Hydromorphone HCl 0.5 mg 01/24/20 16:58 01/24/20 17:02 Dilaudid IVPUSH 01/24/20 16:59 0.5 mg ONETIME ONE Administration Lactated Ringer's 1,000 mls @ 150 mls/hr 01/24/20 17:15 01/24/20 17:26 Ringers, Lactated IV 150 mls/hr ASDIRECTED JOSHUA Administration Lidocaine HCl Confirm 01/24/20 17:23 Xylocaine-Mpf 1% Administered 01/24/20 17:24 Dose 4 mls @ as directed .ROUTE .STK-MED ONE Propofol Confirm 01/24/20 17:24 Diprivan 20 Ml Administered 01/24/20 17:25 Dose 200 mg .ROUTE .STK-MED ONE Sodium Chloride 10 ml 01/24/20 16:59 01/24/20 17:03 Saline Flush FLUSH 10 ml ASDIRECTED PRN Administration Keep Vein Open - Re-Assessments/Exams Free Text/Narrative Re-Assessment/Exam: X-ray of the right shoulder shows obvious dislocation. Anesthesia has been notified and will provide sedation for reduction. Appropriate procedural consent obtained. 01/24/20 1750 Procedural sedation provided by [employer]. Once patient was sedated, the right shoulder was easily reduced. Sling and swath was applied. Post reduction films show that shoulder is in place. Patient will be discharged home once alert. 01/24/20 18:30 Patient is alert and ready to go home. Discussed with him the importance of follow-up with orthopedics. He states he does not have money to right now, but his plan when he gets home is to follow-up to have surgery done. Recommend that he use Tylenol or ibuprofen as needed for pain. Ice over the shoulder as needed. Discharge instructions as documented. Departure - Departure Time of Disposition: 18:30 Disposition: Home, Self-Care 01 Condition: Good Clinical Impression: Recurrent shoulder dislocation Qualifiers: Laterality: right Qualified Code(s): M24.411 - Recurrent dislocation, right shoulder - Discharge Information *PRESCRIPTION DRUG MONITORING PROGRAM REVIEWED*: No *COPY OF PRESCRIPTION DRUG MONITORING REPORT IN PATIENT AAYUSH: No Instructions: Shoulder Dislocation Referrals: PCP,None [Primary Care Provider] - Forms: ED Department Discharge Additional Instructions: You were seen in the emergency department today for a right shoulder dislocation. After anesthesia, the shoulder was easily reduced back into place. A sling has been applied. Recommend that she wear the sling for at least the next 3 to 4 days. Ice over the joint and use Tylenol or ibuprofen as needed. Recommend that you follow-up with orthopedist at your soonest opportunity to have this condition repaired. Is likely that if you do not follow-up with orthopedics, you will continue to have shoulder dislocations. Return to the ER as needed. Sepsis Event Note - Evaluation Sepsis Screening Result: No Definite Risk - Focused Exam Vital Signs: Vital Signs Temp Pulse Resp BP Pulse Ox 01/24/20 16:50 97.4 F 87 18 113/99 H 97 Date Exam was Performed: 01/24/20 Time Exam was Performed: 20:03 - My Orders Last 24 Hours: My Active Orders 01/24/20 16:58 Shoulder Comp Rt [CR] Stat 01/24/20 16:59 Peripheral IV Care [RC] . DIRECTED Peripheral IV Insertion Adult [OM.PC] Stat 01/24/20 17:40 Shoulder 1V Rt [CR] Stat - Assessment/Plan Last 24 Hours: My Active Orders 01/24/20 16:58 Shoulder Comp Rt [CR] Stat 01/24/20 16:59 Peripheral IV Care [RC] . DIRECTED Peripheral IV Insertion Adult [OM.PC] Stat 01/24/20 17:40 Shoulder 1V Rt [CR] Stat
[2020-01-24] MEDS ORDERED: Lactated Ringers 1,000 ML IV SCH (17:15)
[2020-01-24] MEDS ORDERED: Lidocaine 1% 4 ML ONE (17:23)
[2020-01-24] MEDS ORDERED: fentaNYL 100 MCG/2 ML SDV ONE (17:24)
[2020-01-24] MEDS ORDERED: Propofol 200 MG/20 ML SDV ONE (17:24)
--- NOTE | 2020-01-24 18:02 | PCM.PREANE ---
Preanesthetic Assessment - Procedure Proposed Procedure: Right Closed Shoulder Reduction - Anesthesia/Transfusion/Family Hx Anesthesia History: Prior Anesthesia Without Reaction Family History of Anesthesia Reaction: No - Review of Systems General: No Symptoms Pulmonary: No Symptoms Cardiovascular: No Symptoms Gastrointestinal: No Symptoms Neurological: No Symptoms Other: Reports: None - Physical Assessment NPO Status Date: 01/24/20 NPO Status Time: 15:00 (some juice and some bread) Vital Signs: Last Vital Signs Temp 36.3 C 01/24/20 16:50 Pulse 87 01/24/20 16:50 Resp 18 01/24/20 16:50 BP 113/99 H 01/24/20 16:50 Pulse Ox 97 01/24/20 16:50 Weight: 77.27 kg ASA Class: 1E Mental Status: Alert & Oriented x3 Airway Class: Mallampati = 1 Dentition: Reports: Normal Dentition Thyro-Mental Finger Breadths: 3 Mouth Opening Finger Breadths: 3 ROM/Head Extension: Full Lungs: Clear to Auscultation, Normal Respiratory Effort Cardiovascular: Regular Rate, Regular Rhythm - Allergies Allergies/Adverse Reactions: Allergies Allergy/AdvReac Type Severity Reaction Status Date / Time No Known Allergies Allergy Verified 01/24/20 16:54 - Acknowledgements Anesthesia Type Planned: MAC Pt an Appropriate Candidate for the Planned Anesthesia: Yes Alternatives and Risks of Anesthesia Discussed w Pt/Guardian: Yes Pt/Guardian Understands and Agrees with Anesthesia Plan: Yes PreAnesthesia Questionnaire - Past Health History Medical/Surgical History: Denies Medical/Surgical History Gastrointestinal History: Reports: GERD Musculoskeletal History: Reports: Other (See Below) - Past Surgical History Musculoskeletal Surgical History: Reports: Other (See Below) Other Musculoskeletal Surgeries/Procedures:: dislocation of right shoulder x2 - SUBSTANCE USE Smoking Status *Q: Current Every Day Smoker Recreational Drug Use History: Yes Recreational Drug Type: Reports: Marijuana/Hashish - HOME MEDS Home Medications: Home Meds Acyclovir [Zovirax] 800 mg PO 5XDAY 7 Days #34 tab 01/22/20 [Rx] - CURRENT (IN HOUSE) MEDS Current Meds: Current Medications Lactated Ringer's (Ringers, Lactated) 1,000 mls @ 150 mls/hr IV ASDIRECTED JOSHUA Last Admin: 01/24/20 17:26 Dose: 150 mls/hr Sodium Chloride (Saline Flush) 10 ml FLUSH ASDIRECTED PRN PRN Reason: Keep Vein Open Last Admin: 01/24/20 17:03 Dose: 10 ml Discontinued Medications Fentanyl (Sublimaze) Confirm Administered Dose 100 mcg .ROUTE .STK-MED ONE Stop: 01/24/20 17:25 Hydromorphone HCl (Dilaudid) 0.5 mg IVPUSH ONETIME ONE Stop: 01/24/20 16:59 Last Admin: 01/24/20 17:02 Dose: 0.5 mg Lidocaine HCl (Xylocaine-Mpf 1%) Confirm Administered Dose 4 mls @ as directed .ROUTE .STK-MED ONE Stop: 01/24/20 17:24 Propofol (Diprivan 20 Ml) Confirm Administered Dose 200 mg .ROUTE .STK-MED ONE Stop: 01/24/20 17:25
--- NOTE | 2020-01-24 18:03 | PCM.POSTAN ---
POST ANESTHESIA ASSESSMENT - MENTAL STATUS Mental Status: Alert, Oriented - VITAL SIGNS Vital Signs: Last Vital Signs Temp 36.3 C 01/24/20 16:50 Pulse 87 01/24/20 16:50 Resp 18 01/24/20 16:50 BP 113/99 H 01/24/20 16:50 Pulse Ox 97 01/24/20 16:50 - RESPIRATORY Respiratory Status: Respiratory Rate WNL, Airway Patent, O2 Saturation Stable - CARDIOVASCULAR CV Status: Pulse Rate WNL, Blood Pressure Stable - GASTROINTESTINAL GI Status: No Symptoms - PAIN Pain Score: 5 - POST OP HYDRATION Hydration Status: Adequate & Stable - OBSERVATIONS Free Text/Narrative:: No concerns at this time. Routine closed shoulder reduction.
--- NOTE | 2020-01-24 18:04 | PCM48HPAN ---
Post Anesthesia Note - EVALUATION WITHIN 48HRS OF ANESTHETIC Vital Signs in Normal Range: Yes Patient Participated in Evaluation: Yes Respiratory Function Stable: Yes Airway Patent: Yes Cardiovascular Function Stable: Yes Hydration Status Stable: Yes Pain Control Satisfactory: Yes (patient states he's "always in pain") Nausea and Vomiting Control Satisfactory: Yes Mental Status Recovered: Yes Vital Signs: Last Vital Signs Temp 36.3 C 01/24/20 16:50 Pulse 87 01/24/20 16:50 Resp 18 01/24/20 16:50 BP 113/99 H 01/24/20 16:50 Pulse Ox 97 01/24/20 16:50 - COMMENTS/OBSERVATIONS Free Text/Narrative:: No concerns at this time
--- NOTE | 2020-01-25 10:26 | CR ---
Right shoulder: AP view of the right shoulder was obtained. Comparison: Prior shoulder exam performed earlier on the same day (5:18 PM). Previous dislocation is no longer seen. Acromioclavicular and glenohumeral joints appear normal in alignment. No discrete fracture or other abnormality is appreciated. Impression: 1. Previous dislocation is no longer seen. Diagnostic code #1 This report was dictated in MDT
--- NOTE | 2020-01-25 10:26 | CR ---
Right shoulder: 2 views of the right shoulder were obtained. Comparison: Prior shoulder study of 04/02/19. Anterior dislocated shoulder is seen. No acute fracture or other bony abnormality is identified. Impression: 1. Anterior dislocated right shoulder. Diagnostic code #3 This report was dictated in MDT
== END 2020-01-24 18:53 | disposition home or self-care (01) ==
LOC: JD.ED 16:43
DX: M24.411 Recurrent dislocation, right shoulder (principal); X50.3XXA Overexertion from repetitive movements, initial encounter; F17.210 Nicotine dependence, cigarettes, uncomplicated
CPT/HCPCS: 23650; 73020; 73030; 96374; 99283; J1170; J2001; J2704; J3010; J7120; 01620; 23655

== ENCOUNTER 2020-04-30 14:39 | Emergency (ER) | payer SELFPAY ==
[2020-04-30 15:18] VITALS: BP 112/89; PULSE 83
--- NOTE | 2020-04-30 15:59 | CR ---
Right shoulder: 3 views of the right shoulder were obtained. Comparison: Previous right shoulder study of 01/24/20. Distal clavicle is slightly elevated in relation to the acromion process believed to be stable from previous study. Glenohumeral joint is normal. No acute fracture or other abnormality is appreciated. Impression: 1. Nothing acute is seen on right shoulder study. Diagnostic code #2 This report was dictated in MDT
--- NOTE | 2020-04-30 16:18 | EDM.PDOC ---
ED HPI GENERAL MEDICAL PROBLEM - General Chief Complaint: Upper Extremity Injury/Pain Stated Complaint: R SHOULDER INJURY Time Seen by Provider: 04/30/20 15:11 Source of Information: Reports: Patient, RN Notes Reviewed History Limitations: Reports: No Limitations - History of Present Illness INITIAL COMMENTS - FREE TEXT/NARRATIVE: Patient is a 34-year-old male who presents to the ED for the evaluation of his right shoulder injury. Patient states that he dislocated his right shoulder today, while he was using a hammer at work. He notes this was at around 3 PM. He states that he was able to move his fingers, and he did reduce it himself, still having some lingering pain. Patient's not having any fevers or chills, cough or shortness of breath. He did not take any sort of Tylenol ibuprofen. He does mention something about inflammation, and that he also has a drug patch. Right now he has full range of motion in his right shoulder. Right Shoulder Pain Score (Numeric/FACES): 10 - Related Data Allergies Allergy/AdvReac Type Severity Reaction Status Date / Time No Known Allergies Allergy Verified 01/24/20 16:54 Home Meds: Home Meds Acyclovir [Zovirax] 800 mg PO 5XDAY 7 Days #34 tab 01/22/20 [Rx] predniSONE 20 mg PO ASDIRECTED #15 tab 04/30/20 [Rx] Past Medical History - Past Health History Medical/Surgical History: Denies Medical/Surgical History Gastrointestinal History: Reports: GERD Musculoskeletal History: Reports: Other (See Below) - Past Surgical History Musculoskeletal Surgical History: Reports: Other (See Below) Other Musculoskeletal Surgeries/Procedures:: dislocation of right shoulder x2 Social & Family History - Family History Family Medical History: Noncontributory - Tobacco Use Smoking Status *Q: Current Every Day Smoker Years of Tobacco use: 5 Packs/Tins Daily: 1 - Caffeine Use Caffeine Use: Reports: Soda - Recreational Drug Use Recreational Drug Type: Reports: Marijuana/Hashish, Other (see below) Other Recreational Drug Type: Dabx - Living Situation & Occupation Living situation: Reports: Single, with Significant Other (Girlfriend), with Family (1 child) 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 ED EXAM, GENERAL - Physical Exam Exam: See Below Exam Limited By: No Limitations General Appearance: Alert, WD/WN, No Apparent Distress, Anxious Respiratory/Chest: No Respiratory Distress, Lungs Clear, Normal Breath Sounds, No Accessory Muscle Use, Chest Non-Tender Cardiovascular: Normal Peripheral Pulses, Regular Rate, Rhythm, No Murmur Peripheral Pulses: 2+: Radial (L), Radial (R) Extremities: Normal Inspection, Normal Range of Motion, Non-Tender, Normal Capillary Refill Neurological: Alert, Oriented, Normal Cognition, No Motor/Sensory Deficits Psychiatric: Normal Affect, Normal Mood, Anxious (pt does talk quite fast, and does appear to be very anxious) Skin Exam: Warm, Dry, Intact, Normal Color, No Rash Course - Vital Signs Last Recorded V/S: Last Vital Signs Temp 99.1 F 04/30/20 15:16 Pulse 83 04/30/20 15:16 Resp 20 04/30/20 15:16 BP 112/89 04/30/20 15:16 Pulse Ox 100 04/30/20 15:16 - Re-Assessments/Exams Free Text/Narrative Re-Assessment/Exam: 04/30/20 16:15 Patient presents to the ED for his right shoulder injury. X-ray was taken at time of triage, and this does show a shoulder joint that is in placement. With slight AC separation, stable from his last exam. Patient was requesting something for his inflammation, as he states Tylenol ibuprofen usually do not do not do much, and he does have a drug patch. He said he did not want anything stronger for pain. I will trial him with prednisone at this time. Departure - Departure Time of Disposition: 16:17 Disposition: Home, Self-Care 01 Condition: Good Clinical Impression: Recurrent dislocation, right shoulder Right shoulder injury Qualifiers: Encounter type: initial encounter Qualified Code(s): S49.91XA - Unspecified injury of right shoulder and upper arm, initial encounter - Discharge Information *PRESCRIPTION DRUG MONITORING PROGRAM REVIEWED*: No *COPY OF PRESCRIPTION DRUG MONITORING REPORT IN PATIENT AAYUSH: No Prescriptions: predniSONE 20 mg PO ASDIRECTED #15 tab Instructions: Recurrent Shoulder Laxity and Instability Referrals: PCP,None [Primary Care Provider] - Additional Instructions: You have been evaluated in the ED for your right shoulder injury. Your x-ray demonstrated no sign of acute dislocation at this time. Please use ice/heat as tolerated to the affected area. Please try to elevate the affected area to relieve swelling. You may take Tylenol 500 mg or ibuprofen 600mg q6 hrs for pain relief. Please do so until you have a tolerable level of pain with activity. Do not exceed 4000mg Tylenol or 3200mg ibuprofen in a 24 hour time period. You were given a prescription for prednisone, please take as directed. This was sent to the [facility] [employer] [facility] [employer] [facility]. Please return to ED if your symptoms should change or worsen. Sepsis Event Note (ED) - Evaluation Sepsis Screening Result: No Definite Risk - Focused Exam Vital Signs: Vital Signs Temp Pulse Resp BP Pulse Ox 04/30/20 15:16 99.1 F 83 20 112/89 100
== END 2020-04-30 16:30 | disposition home or self-care (01) ==
LOC: JD.ED 14:39
DX: M24.411 Recurrent dislocation, right shoulder (principal); F17.210 Nicotine dependence, cigarettes, uncomplicated
CPT/HCPCS: 73030-26-RT; 73030-RT; 99283

== ENCOUNTER 2025-08-06 18:49 | Emergency (ER) | payer SELFPAY ==
[2025-08-06 21:01] VITALS: BP 100/76; PULSE 70
[2025-08-06] MEDS: Amoxicillin/Clavulanate K 875-125 MG Tab PO ONE (21:01)
== END 2025-08-06 21:03 | disposition home or self-care (01) ==
LOC: JD.ED 18:49
DX: H66.003 Acute suppurative otitis media without spontaneous rupture of ear drum, bilateral (principal); F17.200 Nicotine dependence, unspecified, uncomplicated; Z79.899 Other long term (current) drug therapy
CPT/HCPCS: 99282; A9270